=== PATIENT | female | born 1960 | race Two or more races ===

== ENCOUNTER 2016-11-16 17:46 | Inpatient (IN) | payer MEDICAID ==
[~2016-11-16] VITALS: Ht 157.5 cm; Wt 84.4 kg
--- NOTE | 2016-11-16 17:58 | NUR ---
PRESENT SELF TO ER DUE TO BACK PAIN RADATING TO LOWER, PATIENT ALSO COMPLAINT OF RLQ, 8/10, ACHING SINCE YESTERDAY. PATIENT IS AAO3. APPEARS IN NO APPARENT DISTRESS, RESPIRATION EVEN AND UNLABORED. SKIN IS WARM TO TOUCH AND NON DIAPHORETIC. TEMP 101 AT THIS TIME. PATIENT ALSO COMPLAINT OF DYSURIA DENIES HEMATURIA. OTHE RVS STABLE. GOWNED PT AND PLACED ON TELE MONITOR. WILL CONT TO MONITOR
--- NOTE | 2016-11-16 18:20 | NUR ---
MD GARVEY AT
[2016-11-16] MEDS ORDERED: IV SET PRIMARY PUMP SET 1 EA INFUS.SET MC ONE ×4 (18:28→23:37)
[2016-11-16] MEDS ORDERED: MORPHINE SULFATE INJ 4 MG/ML DISP.SYRIN ONE (18:28)
[2016-11-16] MEDS ORDERED: ONDANSETRON HCL/PF 4 MG/2 ML VIAL ONE ×2 (18:28→21:38)
[2016-11-16] MEDS ORDERED: IV NS 0.9% 1,000 ML ONE ×2 (18:28→23:19)
--- NOTE | 2016-11-16 18:29 | NUR ---
IV ACCESSED. BLOOD SAMPLE SENT TO LAB
--- NOTE | 2016-11-16 18:29 | NUR ---
URINE SAMPLE SENT TO LAB
[2016-11-16] MEDS ORDERED: IV NS 0.9% 1,000 ML BAG IV ONE ×2 (18:30→23:30)
[2016-11-16] MEDS ORDERED: ONDANSETRON HCL/PF - ER 4 MG/2 ML VIAL IV ONE ×2 (18:30→22:00)
[2016-11-16] MEDS ORDERED: MORPHINE SULFATE INJ 2 MG/ML DISP.SYRIN IV ONE (18:30)
[2016-11-16 18:33] LABS: BASOPHILS % (AUTO) 0.2 % (0.0-2.0); EOSINOPHILS # (AUTO) 0.1 /CMM (0.0-0.7); EOSINOPHILS % (AUTO) 0.3 % (0.0-6.0); HEMATOCRIT 39 % (33-45); HEMOGLOBIN 12.6 g/dL (11.5-14.8); LYMPHOCYTES # (AUTO) 2.1 /CMM (0.8-4.8); LYMPHOCYTES % (AUTO) 11.2 % (20.0-44.0); MEAN CORPUSCULAR HEMOGLOBIN 27 PG (26.0-33.0); MEAN CORPUSCULAR HGB CONC 33 g/dl (31.0-36.0); MEAN CORPUSCULAR VOLUME 84 fL (82-100); MONOCYTES # (AUTO) 1.2 /CMM (0.1-1.30); MONOCYTES % (AUTO) 6.5 % (2.0-12.0); NEUTROPHILS # (AUTO) 15.4 /CMM (1.8-8.9); NEUTROPHILS % (AUTO) 81.8 % (43.0-81.0); PLATELET COUNT (AUTO) 292 /CMM (150-450); RDW COEFFICIENT OF VARIATION 14.2 (11.5-15.0); RED BLOOD CELL COUNT(AUTO) 4.59 MIL/uL (4.0-5.2); WHITE BLOOD COUNT (AUTO) 18.8 K/uL (4.3-11.0)
[2016-11-16 18:33] LABS: APPEARANCE,URINE Clear (CLEAR); BILIRUBIN,URINE Negative (NEGATIVE); BLOOD, URINE Moderate Ery/uL (NEGATIVE); COLOR,URINE Yellow (YELLOW); KETONES,URINE Negative (NEGATIVE); LEUKOCYTE ESTERASE ,URINE Moderate (NEGATIVE); NITRITE, URINE Positive (NEGATIVE); PROTEIN,URINE 30 mg/dl (NEGATIVE); UGLUCOSE Negative (NEGATIVE)
--- NOTE | 2016-11-16 18:53 | NUR ---
PATIENT WAS TAKEN TO CT
[2016-11-16 18:54] LABS: ALBUMIN 3.2 g/dL (3.4-5.0); BILIRUBIN,DIRECT 0.2 mg/dL (0.0-0.2); CALCIUM, SERUM 8.6 mg/dL (8.5-10.1); CREATININE 0.8 mg/dL (0.6-1.3); POTASSIUM 2.9 mmol/L (3.5-5.1); TOTAL PROTEIN, SERUM 7.6 g/dL (6.4-8.2)
[2016-11-16 18:55] LABS: ADD URINE CULTURE YES; BACTERIA,URINE Many /HPF (None Seen); SQUAMOUS EPITHELIAL CELL,UR Few /HPF (None Seen)
[2016-11-16] MEDS ORDERED: CIPROFLOXACIN IV RTU 400 MG in PREMIX 1 EA IV STA (19:30)
[2016-11-16] MEDS ORDERED: IV NS 0.9% 250 ML IV ONE ×2 (19:48→22:05)
[2016-11-16] MEDS ORDERED: IOHEXOL-300 100 ML VIAL IV ONE (19:49)
--- NOTE | 2016-11-16 19:49 | NUR ---
PT TRANSPORTED TO RADIOLOGY FOR CT ABD/PELVIS.
--- NOTE | 2016-11-16 20:03 | NUR ---
PT BACK FROM RADIOLOGY. PENDING CT ABD/PELVIS RESULT.
[2016-11-16] MEDS ORDERED: CIPROFLOXACIN IV RTU 200 ML IV ONE (20:05)
[2016-11-16] MEDS ORDERED: HYDROMORPHONE 1 MG/1 ML DISP.SYRIN IV ONE (21:00)
[2016-11-16] MEDS ORDERED: POTASSIUM CHLORIDE 20 MEQ TAB.PRT.SR PO ONE ×2 (21:30→21:35)
[2016-11-16] MEDS ORDERED: ACETAMINOPHEN 650 MG/20.3 ML UDC PO ONE (21:30)
[2016-11-16] MEDS ORDERED: HYDROMORPHONE 1 MG/1 ML DISP.SYRIN ONE (21:35)
[2016-11-16] MEDS ORDERED: ACETAMINOPHEN ES 500 MG TABLET ONE (21:35)
--- NOTE | 2016-11-16 21:45 | NUR ---
PT AMBULATORY TO THE BATHROOM WITH STEADY GAIT NOTED.
[2016-11-16] MEDS ORDERED: PROCHLORPERAZINE EDISYLATE 10 MG/2 ML VIAL ONE (22:02)
--- NOTE | 2016-11-16 22:07 | NUR ---
PT STILL C/O NAUSEA, ER MD MADE AWARE WITH ORDERS RECIEVED. RN TO MEDICATE PT.
[2016-11-16] MEDS ORDERED: IV NS 0.9% 250 ML BAG IV ONE (22:30)
[2016-11-16] MEDS ORDERED: PROCHLORPERAZINE EDISYLATE 10 MG/2 ML VIAL IVP ONE (22:30)
[2016-11-16] MEDS ORDERED: CEFTRIAXONE 1 G in IV D5W 50 ML IV ONE (23:00)
[2016-11-16] MEDS ORDERED: CEFTRIAXONE 1GM BAG (ER ONLY) 50 ML IV ONE (23:01)
[2016-11-16] MEDS ORDERED: IV SET PRIMARY 1 EA INFUS.SET MC ONE ×2 (23:01→23:19)
--- NOTE | 2016-11-16 23:21 | NUR ---
ER SPOKE TO DR. ENCISO REGARDING PT ADMISSION.
--- NOTE | 2016-11-16 23:29 | NUR ---
REPORT CALLED TO TELE 1 MODESTA PICKETT. WILL TRANSPORT PT VIA ACLS PROTOCOL.
[2016-11-16] MEDS ORDERED: ACETAMINOPHEN ES 500 MG TABLET PO ONE (23:30)
--- NOTE | 2016-11-16 23:38 | NUR ---
TELE-1/MEDIA MANAGER PT ARRIVED TO UNIT ACCOMPANIED BY ER STAFF. PT AMBULATED TO BED 104 WITH STEADY GAIT. PT IS FEBRILE 101.9 COOLING MEASURES INITIATED. ADMISSION ASSESSMENT DATA GATHERED. SKIN INTACT. RIGHT AC #20 IV PATENT. PT MADE COMFORTABLE. PT ORIENTED TO ROOM AND CALL LIGHT USE. BED IN LOWEST LOCKED POSITION. WILL CONTINUE TO MONITOR.
[2016-11-16 23:58] VITALS: BP 96/61
[2016-11-17] VITALS: BP 98/61
[2016-11-17] MEDS ORDERED: MAG HYDROX/AL HYDROX/SIMETH 30 ML UDC PO PRN
[2016-11-17] MEDS ORDERED: ZOLPIDEM TARTRATE 5 MG TABLET PO PRN
[2016-11-17] MEDS ORDERED: Z GUARD REMEDY 2 OZ OINT TP PRN
[2016-11-17] MEDS ORDERED: MAGNESIUM HYDROXIDE 30 ML UDC PO PRN
[2016-11-17] MEDS ORDERED: ONDANSETRON HCL/PF 4 MG/2 ML VIAL IVP PRN
[2016-11-17] MEDS ORDERED: PANTOPRAZOLE 40 MG TABLET.DR PO ONE (00:13)
[2016-11-17] MEDS ORDERED: HYDROCODONE/APAP 5/325MG 1 EACH TABLET ONE ×2 (00:14→04:28)
[2016-11-17] MEDS: HYDROCODONE/APAP 5/325MG 1 EACH TABLET PO PRN ×2 (00:20→04:32)
[2016-11-17] MEDS: PANTOPRAZOLE 40 MG TABLET.DR PO SCH ×2 (00:20→09:07)
[2016-11-17] MEDS: IV NS 0.9% 1,000 ML IV PRN ×3 (00:21→17:23)
--- NOTE | 2016-11-17 00:32 | NUR ---
MED NOTE: SPOKE WITH DR. ENCISO, PT RECEIVED 1GM ROCEPHIN IN ER. START NEW ORDER OF 2GM ROCEPHIN IN AM. WILL CONTINUE TO MONITOR.
[2016-11-17 04:00] VITALS: BP_SYST 108; BP_SYST 121; BP_DIAS 60; BP_DIAS 63
[2016-11-17] MEDS ORDERED: OXYC-34 PO (07:27)
[2016-11-17] MEDS ORDERED: CITA10TA9 PO (07:27)
[2016-11-17] MEDS ORDERED: CYCL5TAB PO (07:27)
[2016-11-17] MEDS ORDERED: DILT120C2 PO (07:27)
[2016-11-17] MEDS ORDERED: OMEP20CA10 PO (07:27)
[2016-11-17 07:30] LABS: BASOPHILS # (AUTO) 0.1 /CMM (0.0-0.2); BASOPHILS % (AUTO) 0.3 % (0.0-2.0); EOSINOPHILS % (AUTO) 0.2 % (0.0-6.0); HEMATOCRIT 35 % (33-45); HEMOGLOBIN 11.6 g/dL (11.5-14.8); LYMPHOCYTES # (AUTO) 1.7 /CMM (0.8-4.8); LYMPHOCYTES % (AUTO) 9.3 % (20.0-44.0); MEAN CORPUSCULAR HEMOGLOBIN 28 PG (26.0-33.0); MEAN CORPUSCULAR HGB CONC 33 g/dl (31.0-36.0); MEAN CORPUSCULAR VOLUME 84 fL (82-100); MONOCYTES # (AUTO) 1.5 /CMM (0.1-1.30); MONOCYTES % (AUTO) 8.2 % (2.0-12.0); NEUTROPHILS # (AUTO) 14.7 /CMM (1.8-8.9); PLATELET COUNT (AUTO) 257 /CMM (150-450); RDW COEFFICIENT OF VARIATION 15.4 (11.5-15.0)
[2016-11-17 08:00] VITALS: BP 141/73
--- NOTE | 2016-11-17 08:00 | NUR ---
TELE1/RN AM SHIFT INITIAL NOTES RECEIVED PT ASLEEP IN BED, PT A/O X 4, COMPLAINT OF PAIN 8/10 OF BACK PAIN. ON ROOM AIR SATURATING @ 99%, NO FEVER AT THIS TIME. NO ACUTE CHANGE OF CONDITION. ON TELE WITH SINUS TACHY, HR 110. WITH ON GOING IV HYDRATION OF NS @ 125CC/HR, IV SITE PATENT WITH NO S/S OF INFECTION. MORPHINE PRN TO BE GIVEN WELL WELL SCHEDULED AM MEDS. CL WITHIN REACHED AND SAFETY MAINTAINED. CL WITHIN REACHED AND SAFETY MAINTAINED.
[2016-11-17 08:23] LABS: ALBUMIN 2.5 g/dL (3.4-5.0); BILIRUBIN,TOTAL 0.7 mg/dL (0.2-1.0); CALCIUM, SERUM 8.2 mg/dL (8.5-10.1); CREATININE 0.7 mg/dL (0.6-1.3); PHOSPHORUS 2.7 mg/dL (2.5-4.9); POTASSIUM 3.4 mmol/L (3.5-5.1); TOTAL PROTEIN, SERUM 6.6 g/dL (6.4-8.2)
[2016-11-17] MEDS: ACETAMINOPHEN 325 MG TABLET PO PRN ×2 (09:07→21:20)
[2016-11-17] MEDS ORDERED: POTASSIUM CHLORIDE 20 MEQ TAB.PRT.SR PO ONE (10:30)
--- NOTE | 2016-11-17 10:30 | NUR ---
MS1/RN ROUNDS - DR. ACEVEDO, H PT SEEN & EXAMINED BY DR. ACEVEDO. NO NEW ORDERS RECEIVED AT THIS TIME. MONITORING CONTINUED.
[2016-11-17] MEDS ORDERED: MAGNESIUM CITRATE 296 ML BOTTLE PO ONE (11:00)
[2016-11-17] MEDS: POLYETHYLENE GLYCOL 3350 17 GM POWD.PACK PO SCH ×2 (11:16→21:20)
[2016-11-17] MEDS ORDERED: MORPHINE SULFATE INJ 2 MG/ML DISP.SYRIN IV PRN ×2 (11:20)
--- NOTE | 2016-11-17 13:15 | NUR ---
MS1/RN ROUNDS - SALLY MCKEON UPDATED PT'S CONDITION. PT SEEN & EXAMINED BY SALLY MCKEON, NO NEW ORDERS RECEIVED AT THIS TIME. ON GOING MONITORING.
--- NOTE | 2016-11-17 13:40 | NUR ---
MS1/RN PAIN ASSESSMENT NOTIFIED UNIT SUPPORT REPRESENTATIVE ROLAN THAT PRN MORPHINE IS NOT WORKING TO RELIEVED PAIN PT STILL RATED 8/8 AFTER 30 MINS RECEIVING MEDICATION. WITH NEW ORDERS RECEIVED TO D/C MORPHINE PRN AND START PT ON DILAUDID 1MG IVP PRN Q 4HRS AND ZOFRAN PRN FREQUENCY FROM Q6HRS TO 4HRS. ORDERS NOTED AND CARRIED. MONITORING CONTINUED.
[2016-11-17] MEDS ORDERED: SECONDARY IV SET 1 EA INFUS.SET MC ONE (13:57)
[2016-11-17] MEDS ORDERED: CEFTRIAXONE 2 G in IV D5W 100 ML IV SCH ×3 (14:00)
[2016-11-17] MEDS: ONDANSETRON HCL/PF 4 MG/2 ML VIAL IVP PRN ×3 (14:08→22:11)
[2016-11-17] MEDS: HYDROMORPHONE 1 MG/1 ML DISP.SYRIN IV PRN ×3 (14:09→22:12)
--- NOTE | 2016-11-17 14:45 | NUR ---
MS1/RN ROUNDS - SALLY ROBERTSON UPDATED PT'S CONDITION. PT SEEN & EXAMINED BY SALLY ROBERTSON, NO NEW ORDERS RECEIVED AT THIS TIME. MONITORING CONTINUED.
[2016-11-17 16:00] VITALS: BP 152/83
[2016-11-17] MEDS: MEROPENEM 500 MG in IV NS 0.9% 50 ML IV SCH ×2 (17:22→21:20)
--- NOTE | 2016-11-17 19:15 | NUR ---
RN INITIAL NOTES RECEIVED PATIENT IN BED, AWAKE AND ALERT AND ORIENTED. PATIENT WITH FACIAL GRIMACING AND DISCOMFORT. PATIENT REPORTS LOWER BACK PAIN, 7/10, SOMEHOW RELIEVED AFTER PAIN MEDICATION HAS BEEN GIVEN 1800. PATIENT WELL AWARE OF HER PRN PAIN MEDICATION SCHEDULE, VERBALIZED UNDERSTANDING. PATIENT REPOSITIONED FOR COMFORT AT THIS TIME, ENVIRONMENTAL CHANGES MADE APPROPRIATE, FAMILY AT BEDSIDE FOR SUPPORT. ASSISTED WITH ADLS NEEDED, SAFETY AND FALL PRECAUTIONS OBSERVED AT ALL TIMES. PATIENT'S NEEDS ANTICIPATED AND MET. IVF OF NS AT 125CC/HR INFUSING WELL ON PATIENT'S R AC, NO SIGNS OF INFILTRATION. ON ROOM AIR WITH NO DISTRESS. PATIENT'S FAMILY INQUIRED WITH REGARDS TO THE PATIENT'S HOME MEDS, PARTICULARLY BP MEDS, FAMILY GAVE DOSE OF DILTIAZEM, UPDATED MED RECON NEEDED. CALLED THE [facility].
--- NOTE | 2016-11-17 19:22 | NUR ---
MS1/RN AM SHIFT END NOTES NO ACUTE CHANGE OF CONDITION NOTED DURING THE SHIFT. NEEDS MET. PT ENDORSED TO PM NURSE TO CONTINUE CARE. CL WITHIN REACHED AND SAFETY MAINTAINED.
--- NOTE | 2016-11-17 19:30 | NUR ---
RN NOTES SPOKE WITH DR. ENCISO WITH REGARDS TO THE PATIENT'S BP MEDS INQUIRED BY THE PATIENT, PATIENT TAKING DILTIAZEM ER 360MG DAILY, OK TO RESUME MED. ORDER NOTED AND CARRIED OUT. COORDINATED WITH PHARMACIST FOR THE ORDER DOSING. PATIENT MADE AWARE.
[2016-11-17 20:00] VITALS: BP 149/77
--- NOTE | 2016-11-17 22:00 | NUR ---
RN NOTES PATIENT COMPLAINED OF LOWER BACK PAIN, 03/11, PATIENT IS RESTLESS AND IRRITABLE AT THIS TIME. PATIENT MEDICATED WITH DILAUDID 1MG/1ML IVP WITH ZOFRAN 4MG/2ML IVP ORDERED AND PER PATIENT'S REQUEST. PATIENT REPOSITIONED IN BED COMFORTABLY, ICE PACK APPLIED ON LOWER BACK FOR PAIN MANAGEMENT. WILL MONITOR.
--- NOTE | 2016-11-17 23:00 | NUR ---
RN NOTES PATIENT IN BED, SLEEPING SOUNDLY. NO DISTRESS. EASILY AROUSABLE WITH VERBAL AND TACTILE STIMULI. PAIN MEDICATION EFFECTIVE AT THIS TIME. WILL MONITOR.
[2016-11-18] MEDS: HYDROMORPHONE 1 MG/1 ML DISP.SYRIN IV PRN ×6 (02:26→22:06)
[2016-11-18] MEDS: ONDANSETRON HCL/PF 4 MG/2 ML VIAL IVP PRN ×3 (02:29→22:04)
--- NOTE | 2016-11-18 02:30 | NUR ---
PRN DILAUDID 1MG AND ZOFRAN 4MG IV GIVEN FOR LOWER BACK PAIN 04/10 AND FOR NAUSEA, TOLERATED WELL AT THIS TIME , PRIMARY NURSE LEATHA MADE AWARE .
[2016-11-18] MEDS: IV NS 0.9% 1,000 ML IV PRN (03:25)
[2016-11-18 04:00] VITALS: BP 151/80
[2016-11-18] MEDS: MEROPENEM 500 MG in IV NS 0.9% 50 ML IV SCH ×3 (05:32→20:31)
[2016-11-18 06:35] LABS: BASOPHILS % (AUTO) 0.2 % (0.0-2.0); EOSINOPHILS % (AUTO) 0.2 % (0.0-6.0); HEMATOCRIT 40 % (33-45); HEMOGLOBIN 12.9 g/dL (11.5-14.8); LYMPHOCYTES # (AUTO) 2.1 /CMM (0.8-4.8); LYMPHOCYTES % (AUTO) 16.2 % (20.0-44.0); MEAN CORPUSCULAR HEMOGLOBIN 27 PG (26.0-33.0); MEAN CORPUSCULAR HGB CONC 33 g/dl (31.0-36.0); MEAN CORPUSCULAR VOLUME 84 fL (82-100); MONOCYTES # (AUTO) 1.1 /CMM (0.1-1.30); MONOCYTES % (AUTO) 8.9 % (2.0-12.0); NEUTROPHILS # (AUTO) 9.6 /CMM (1.8-8.9); NEUTROPHILS % (AUTO) 74.5 % (43.0-81.0); PLATELET COUNT (AUTO) 287 /CMM (150-450); RDW COEFFICIENT OF VARIATION 15.5 (11.5-15.0); RED BLOOD CELL COUNT(AUTO) 4.72 MIL/uL (4.0-5.2); WHITE BLOOD COUNT (AUTO) 12.9 K/uL (4.3-11.0)
--- NOTE | 2016-11-18 06:45 | NUR ---
RN CLOSING NOTES PATIENT WITH NO ACUTE DISTRESS AND CHANGE OF CONDITION OBSERVED OVERNIGHT. PATIENT MEDICATED FOR PAIN NEEDED FOR C/O LOWER BACK PAIN AND NECK PAIN, MANAGED WELL. PATIENT ASSISTED WITH ADLS NEEDED. IVF CONTINUOUS ORDERED, INFUSING WELL ON R AC, NO SIGNS OF INFILTRATION. PATIENT'S NEEDS ANTICIPATED AND MET. SAFETY AND COMFORT ENSURED. BED IN LOW AND LOCKED POSITION. CALL LIGHT IN REACH. WILL ENDORSE ACCORDINGLY FOR CONTINUITY OF CARE.
[2016-11-18 07:00] LABS: CALCIUM, SERUM 8.5 mg/dL (8.5-10.1); CREATININE 0.7 mg/dL (0.6-1.3); MAGNESIUM 2.1 mg/dL (1.8-2.4); POTASSIUM 3.1 mmol/L (3.5-5.1)
[2016-11-18 08:00] VITALS: BP_SYST 148; BP_SYST 151; BP_DIAS 80
[2016-11-18] MEDS: PANTOPRAZOLE 40 MG TABLET.DR PO SCH (09:32)
[2016-11-18] MEDS: DILTIAZEM HCL CD 180 MG PO SCH (09:32)
[2016-11-18] MEDS ORDERED: POTASSIUM CL. PREMIX PERIPHER. 50 ML IV SCH (11:00)
[2016-11-18] MEDS ORDERED: IV NS 0.9% 1,000 ML IV PRN (11:54)
[2016-11-18 12:00] VITALS: BP 144/80
[2016-11-18] MEDS: ACETAMINOPHEN 325 MG TABLET PO PRN ×2 (12:39→20:30)
[2016-11-18] MEDS ORDERED: POTASSIUM CHLORIDE 20 MEQ TAB.PRT.SR PO ONE (13:00)
[2016-11-18] MEDS ORDERED: SECONDARY IV SET 1 EA INFUS.SET MC ONE (13:02)
[2016-11-18] MEDS ORDERED: IV SET PRIMARY PUMP SET 1 EA INFUS.SET MC ONE (13:44)
[2016-11-18] MEDS ORDERED: IV NS 0.9% 1,000 ML ONE (15:59)
[2016-11-18 20:00] VITALS: BP_SYST 101; BP_SYST 122; BP_DIAS 63; BP_DIAS 68
--- NOTE | 2016-11-18 20:00 | NUR ---
MS RN OPENING NOTES: RECEIVED PT FROM LEATHA. PT IS IN BED LAYING DOWN AND IS AWAKE. PT A/O X4. NO SIGNS OR SYMPTOMS OF DISTRESS AT THIS TIME. PT HAS IV ON L FOREARM #22G AND IS PATENT AND INTACT. FLUIDS ARE INFUSING AT NS AT 125ML/HR. BED KEPT IN LOCKED, LOWEST POSITION, AND SIDE RAILS X 2 UP. CALL LIGHT WITHIN PT'S REACH. PT KEPT CLEAN, DRY, AND COMFORTABLE. WILL CONTINUE TO MONITOR PT.
[2016-11-18] MEDS: POLYETHYLENE GLYCOL 3350 17 GM POWD.PACK PO SCH (22:03)
--- NOTE | 2016-11-18 22:06 | NUR ---
MS RN NOTES: PT COMPLAINED OF LOWER BACK PAIN 04/10. PT RECEIVED DILAUDID AND ZOFRAN. WILL CONTINUE TO MONITOR PT.
[2016-11-19] VITALS: BP 101/63
[2016-11-19 01:48] VITALS: BP 101/63
[2016-11-19] MEDS: ONDANSETRON HCL/PF 4 MG/2 ML VIAL IVP PRN ×4 (02:09→14:12)
[2016-11-19] MEDS: HYDROMORPHONE 1 MG/1 ML DISP.SYRIN IV PRN ×4 (02:13→14:12)
[2016-11-19] MEDS ORDERED: SECONDARY IV SET 1 EA INFUS.SET MC ONE (04:05)
[2016-11-19] MEDS: MEROPENEM 500 MG in IV NS 0.9% 50 ML IV SCH ×2 (04:11→12:54)
[2016-11-19] MEDS: ACETAMINOPHEN 325 MG TABLET PO PRN ×2 (04:39→16:04)
[2016-11-19 04:44] VITALS: BP 129/72
[2016-11-19] MEDS: PANTOPRAZOLE 40 MG TABLET.DR PO SCH (06:29)
[2016-11-19 06:38] LABS: BASOPHILS % (AUTO) 0.2 % (0.0-2.0); EOSINOPHILS % (AUTO) 0.4 % (0.0-6.0); HEMATOCRIT 36 % (33-45); HEMOGLOBIN 11.8 g/dL (11.5-14.8); LYMPHOCYTES # (AUTO) 1.9 /CMM (0.8-4.8); LYMPHOCYTES % (AUTO) 22.6 % (20.0-44.0); MEAN CORPUSCULAR HEMOGLOBIN 28 PG (26.0-33.0); MEAN CORPUSCULAR HGB CONC 33 g/dl (31.0-36.0); MEAN CORPUSCULAR VOLUME 83 fL (82-100); MONOCYTES % (AUTO) 11.7 % (2.0-12.0); NEUTROPHILS # (AUTO) 5.4 /CMM (1.8-8.9); NEUTROPHILS % (AUTO) 65.1 % (43.0-81.0); PLATELET COUNT (AUTO) 270 /CMM (150-450); RDW COEFFICIENT OF VARIATION 15.3 (11.5-15.0); RED BLOOD CELL COUNT(AUTO) 4.27 MIL/uL (4.0-5.2); WHITE BLOOD COUNT (AUTO) 8.4 K/uL (4.3-11.0)
[2016-11-19 06:50] LABS: CALCIUM, SERUM 8.2 mg/dL (8.5-10.1); CREATININE 0.6 mg/dL (0.6-1.3); POTASSIUM 3.2 mmol/L (3.5-5.1)
--- NOTE | 2016-11-19 07:20 | NUR ---
RECEIVED PT. ON BED AWAKE ,NOT IN DISTRESS NOTED. ABLE TO MAKE NEEDS KNOWN. WITH ASSIST IN HER ADL'S. NEEDS ATTENDED AND ANTICIPATED. CARED FOR,
--- NOTE | 2016-11-19 07:25 | NUR ---
MS RN CLOSING NOTES ALL NEEDS WERE ATTENDED AND ANTICIPATED FOR. NO SIGNS OR SYMPTOMS OF DISTRESS AT THIS TIME. PT KEPT CLEAN, DRY, AND COMFORTABLE. IV #22 IS PATENT AND INTACT ON L FOREARM. FLUIDS ARE INFUSING AT NS 1,000ML AT 75ML/HR. CALL LIGHT WITHIN PT'S REACH. BED KEPT IN LOCKED, LOWEST POSITION, AND SIDE RAILS X 2 UP. ENDORSED TO AM NURSE FOR CONTINUITY OF CARE.
[2016-11-19 08:00] VITALS: BP 145/88
[2016-11-19 08:49] VITALS: BP 145/88
[2016-11-19] MEDS: DILTIAZEM HCL CD 180 MG PO SCH (08:49)
[2016-11-19] MEDS ORDERED: POTASSIUM CHLORIDE 20 MEQ TAB.PRT.SR PO ONE (10:00)
[2016-11-19] MEDS ORDERED: LEVO500T90 PO (14:25)
--- NOTE | 2016-11-19 16:20 | NUR ---
MS1/DISTRIBUTION FIELD ENGINEER - HOME DISCHARGE INSTRUCTIONS GIVEN TO PT, VERBALIZED UNDERSTANDING. PRESCRIPTION FAXED TO PT'S PREFERRED PHARMACY. IV SITE REMOVED PRESSURE DRESSING APPLIED, NO S/S OF INFECTION. IB BAND REMOVED. PT LEFT MS1 IN STABLE CONDITION VIA WHEELCHAIR ACCOMPANIED BY PT'S AND FRIEND TO AN AWAITING PRIVATE CAR.
== END 2016-11-19 17:34 | disposition home or self-care (01) | DRG 720 ==
LOC: ER 17:48 → TELE1 23:21 → MEDSG1 11-17 08:53
PROVIDERS: ADMIT Internal Medicine; ATTEND Contractor
DX: A41.9 Sepsis, unspecified organism (principal); N10 Acute pyelonephritis; I10 Essential (primary) hypertension; E87.6 Hypokalemia; Z98.1 Arthrodesis status; N39.0 Urinary tract infection, site not specified; B96.20 Unspecified Escherichia coli [E. coli] as the cause of diseases classified elsewhere
CPT/HCPCS: 36415; 71010-TC; 80048-TC; 80053-TC; 80076-TC; 81000-TC; 83690-TC; 83735-TC; 84100-TC; 85025-TC; 87040-TC; 87081-TC; 87086-TC; 87186-TC; A4216; A4606; J0696; J0744; J0780; J1170; J2185; J2270; J2405; J3480; J7030; J7050; J7060; Q9967; Z7610